=== PATIENT | male | born 1985 | race Caucasian/White ===

== ENCOUNTER 2020-11-22 21:36 | Emergency (ER) | payer OTHER ==
[~2020-11-22] VITALS: Ht 188 cm; Wt 89.8 kg
[2020-11-22] MEDS ORDERED: MORPHINE SULFAT10 M2 PO (21:49)
[2020-11-22] MEDS ORDERED: KEFLEX250 MG PO (21:49)
[2020-11-22 23:00] LABS: ABSOLUTE EOSINOPHILS 0.2 thou/uL (0.0-0.7); ABSOLUTE LYMPHOCYTES 2.8 thou/uL (0.8-5.3); ABSOLUTE MONOCYTES 0.7 thou/uL (0.0-1.2); ABSOLUTE NEUTROPHILS 4.2 thou/uL (1.6-8.1); BASOPHILS 0.2 %; HEMOGLOBIN 12.9 gm/dL (14.0-18.0); LYMPHOCYTES 35.6 %; MCH 31.1 pg (26.0-34.0); MCV 91.4 fL (80.0-100.0); MONOCYTES 8.7 %; MPV 7.5 fl. (7.2-11.1); NUCLEATED RBCS 0 /100WBC; PLATELET COUNT* 255 thou/uL (150-400); POLYS 52.5 %; RBC 4.15 mil/uL (4.50-6.00); RDW-CV 13.5 % (10.5-14.5)
[2020-11-22 23:14] LABS: CALCIUM 8.6 mg/dL (8.5-10.1); CREATININE 0.9 mg/dL (0.6-1.3); POTASSIUM 3.9 mmol/L (3.5-5.1)
[2020-11-23] MEDS ORDERED: MORPHINE SULFAT15 M4 PO (02:05)
[2020-11-23 02:24] VITALS: BP 116/77
== END 2020-11-23 02:24 | disposition home or self-care (01) ==
LOC: M.ERS 21:36
PROVIDERS: Emergency Medicine
DX: R22.42 Localized swelling, mass and lump, left lower limb (principal)